=== PATIENT | female | born 1955 ===

== ENCOUNTER → 2018-12-03 12:27 | Outpatient (CLI) | payer BC, SELFPAY ==
--- NOTE | 2018-12-03 | DI.MG.S_ITS ---
BILATERAL DIGITAL SCREENING MAMMOGRAM 3D/2D WITH CAD: 12/03/2018 CLINICAL: Routine screening. Family history of breast cancer. Comparison is made to exams dated: 11/30/2017 mammogram and 10/12/2016 mammogram - [facility]. The tissue of both breasts is heterogeneously dense. This may lower the sensitivity of mammography. Current study was also evaluated with a Computer Aided Detection (CAD) system. No significant masses, calcifications, or other findings are seen in either breast. There has been no significant interval change. IMPRESSION: NEGATIVE There is no mammographic evidence of malignancy. A 1 year screening mammogram is recommended. This exam was interpreted at Station ID: [id number]. NOTE: For mammograms, a report in lay terms will be sent to the patient. Approximately 15% of breast malignancies will not be visualized mammographically. In the management of a palpable breast mass, a negative mammogram must not discourage biopsy of a clinically suspicious lesion. Electronically Signed By: Yohana barron/evy:12/03/2018 18:27:40 letter sent: Normal Exam ACR BI-RADS Category 1: Negative [id number]
== END ==
PROVIDERS: PCP Nurse Practitioner; Visit Provider Nurse Practitioner
DX: Z12.31 Encounter for screening mammogram for malignant neoplasm of breast (principal); Z80.3 Family history of malignant neoplasm of breast
CPT/HCPCS: 77063; 77067

== ENCOUNTER → 2019-05-22 10:28 | Outpatient (CLI) | payer BC, SELFPAY ==
--- NOTE | 2019-05-22 10:52 | DI.US.S_ITS ---
PROCEDURE: US ABDOMEN COMPLETE INDICATIONS: RUQ PAIN TECHNIQUE: Real-time scanning was performed of the abdominal and retroperitoneal organs, with image documentation. COMPARISON: None. FINDINGS: Liver: Liver is normal in size and homogeneous in echotexture. Gallbladder: The gallbladder appears normal Biliary ducts: Intrahepatic bile ducts are non-dilated. Extrahepatic bile duct caliber measures 2.5 mm. Normal is 6-7 mm or less in diameter, or 10 mm or less post-cholecystectomy. Pancreas: Visualized portions of the pancreas are sonographically normal. Spleen: Spleen is normal in size and homogeneous in echotexture. Kidneys: Kidneys are normal in size and echotexture. Right kidney measures 9.4 cm long; left kidney measures 9.0 cm long. No hydronephrosis or nephrolithiasis. No solid masses. Aorta: Visualized aorta is normal in caliber at less than 3 cm. Iliacs: Proximal common iliac arteries are normal in caliber at less than 2.5 cm. IVC: Intrahepatic inferior vena cava is patent. Miscellaneous: No free abdominal fluid. IMPRESSION: Normal abdominal ultrasound, source of right upper quadrant pain is not seen. Dictated by: Ok Rosales M.D. on 05/22/2019 at 11:10 Approved by: Ok Rosales M.D. on 05/22/2019 at 11:10
== END ==
PROVIDERS: PCP Nurse Practitioner; Visit Provider Nurse Practitioner Family
DX: R10.11 Right upper quadrant pain (principal)
CPT/HCPCS: 76700

== ENCOUNTER → 2019-06-03 10:39 | Outpatient (CLI) | payer BC, SELFPAY ==
--- NOTE | 2019-06-03 | DI.US.S_ITS ---
PROCEDURE: US PELVIC COMPLETE INDICATIONS: RT PELVIC PAIN/ HX OF OVARIAN CYST TECHNIQUE: Real-time scanning was performed of the pelvic organs, with image documentation. Additional endovaginal scanning was necessary due to incomplete visualization of the adnexal and endometrial structures by transabdominal scanning. COMPARISON: None. FINDINGS: Transabdominal scanning: Limited scanning through the kidneys shows no hydronephrosis. No pathologic free abdominal or pelvic fluid. Endovaginal scanning: Uterus: Uterus is normal in size at 6.1 x 2.2 x 3.6 cm. a few uterine fibroids. A mid submucosal fibroid measuring 2.5 x 2.2 x 2.4 cm. A left anterior intramural fibroid measuring 1.4 x 1.8 x 1.4 cm. Endometrium: Not well-visualized. This may be due to the submucosal fibroid. Cervix: Mildly complex fluid in the cervical canal with internal echoes measuring a 1.6 x 0.9 x 1.4 cm. No internal vascularity. Ovaries: Normal in appearance. No mass or cystic lesion. -Right ovary measures 2.4 x 1.2 x 1.1 cm. -Left ovary measures 2.6 x 1.1 x 1.2 cm. IMPRESSION: 1. Small uterine fibroids. The endometrium is not well-seen likely due to a submucosal fibroid measuring 2.5 cm. 2. Mildly complex fluid collection in the cervical canal measuring 1.6 cm. No internal vascularity. 3. Normal ovaries. Dictated by: Oscar Araiza M.D. on 06/03/2019 at 11:56 Approved by: Oscar Araiza M.D. on 06/03/2019 at 12:06
== END ==
PROVIDERS: PCP Nurse Practitioner; Visit Provider Nurse Practitioner
DX: R10.2 Pelvic and perineal pain (principal); D25.1 Intramural leiomyoma of uterus; D25.0 Submucous leiomyoma of uterus
CPT/HCPCS: 76830; 76856